=== PATIENT | male | born 1950 | race Caucasian/White ===

== ENCOUNTER 2019-06-23 22:57 | Emergency (ER) | payer MEDICARE ==
[~2019-06-23] VITALS: Ht 185.4 cm; Wt 83.9 kg
[~2019-06-23 22:57] MED LIST: DICL75ER PO; DIPH50 PO; LEVOXYL; LEVSOD100 PO; Norco 10-325 T1 EACH PO
[2019-06-23] MEDS ORDERED: GABA100 PO (23:49)
== END 2019-06-24 03:10 | disposition home or self-care (01) ==
LOC: ER 22:57
DX: R51 Headache (principal); Z88.5 Allergy status to narcotic agent; G89.29 Other chronic pain; M54.9 Dorsalgia, unspecified; Z87.891 Personal history of nicotine dependence; Z79.899 Other long term (current) drug therapy
CPT/HCPCS: 36415; 70450; 72040; 96374; 96375; 99284-25; J1100; J1200; J1885; J2765; J7030

== ENCOUNTER 2021-04-05 14:35 | Day surgery (SDC) | payer MEDICARE ==
[~2021-04-05] VITALS: Ht 187.9 cm; Wt 86.3 kg
[~2021-04-05 14:35] MED LIST changes: +GABA100 PO
== END 2021-04-05 17:40 | disposition home or self-care (01) ==
LOC: ORSCSDS 14:35
PROVIDERS: Podiatrist Foot & Ankle Surgery
PROC: 0SGQ04Z Fusion of Left Toe Phalangeal Joint with Internal Fixation Device, Open Approach (ICD-10-PCS; principal; 2021-04-05 15:45)
DX: M20.42 Other hammer toe(s) (acquired), left foot (principal); E03.9 Hypothyroidism, unspecified; Z87.891 Personal history of nicotine dependence; Z79.899 Other long term (current) drug therapy
CPT/HCPCS: A9270; C1713; J0171; J0690; J7120

== ENCOUNTER → 2022-01-25 | Outpatient (CLI) | payer MEDICARE | END | disposition home or self-care (01) | LOC: PLD 11:13 → LAB SHORT 11:13 | DX: L82.1 Other seborrheic keratosis (principal) | CPT/HCPCS: 88305 ==

== ENCOUNTER 2023-10-26 09:18 | Day surgery (SDC) | payer MEDICARE ==
[~2023-10-26] VITALS: Ht 188 cm; Wt 96.1 kg
[~2023-10-26 09:18] MED LIST changes: +AMOCLA875 PO; +BACL20 PO; +DOXE25 PO; +DULO30 PO; -LEVSOD100 PO; +MELATONIN5 M1 PO; +SYNTHROID125 MC1 PO
[2023-10-26] MEDS ORDERED: GABA600 PO (09:46)
[2023-10-26] MEDS ORDERED: TESTOSTERONE100 MG IL (09:47)
[2023-10-26 11:02] VITALS: BP 134/85
--- NOTE | 2023-10-26 11:06 | NUR ---
10/26/23 1106 Familia Harley IV REMOVED INTACT. SITE WNL.
== END 2023-10-26 11:05 | disposition home or self-care (01) ==
LOC: ORSCSDS 09:18
PROVIDERS: Ophthalmology
PROC: 08RJ3JZ Replacement of Right Lens with Synthetic Substitute, Percutaneous Approach (ICD-10-PCS; principal; 2023-10-26 10:30)
DX: H25.11 Age-related nuclear cataract, right eye (principal); F32.A Depression, unspecified; H35.30 Unspecified macular degeneration; Z79.899 Other long term (current) drug therapy
CPT/HCPCS: J2250; J3010; J3301; J7040; V2632

== ENCOUNTER 2023-11-02 13:06 | Day surgery (SDC) | payer MEDICARE ==
[~2023-11-02] VITALS: Ht 188 cm; Wt 95.0 kg
[~2023-11-02 13:06] MED LIST changes: +GABA600 PO; +TESTOSTERONE100 MG IL
--- NOTE | 2023-11-02 14:50 | NUR ---
11/02/23 1450 Esperanza Johansen PROPARACAINE: 1438 PLEDGETT: 1437
[2023-11-02 15:55] VITALS: BP 155/81
== END 2023-11-02 16:25 | disposition home or self-care (01) ==
LOC: ORSCSDS 13:06
PROVIDERS: Ophthalmology
PROC: 08RK3JZ Replacement of Left Lens with Synthetic Substitute, Percutaneous Approach (ICD-10-PCS; principal; 2023-11-02 14:30)
DX: H25.12 Age-related nuclear cataract, left eye (principal); Z96.1 Presence of intraocular lens; H35.30 Unspecified macular degeneration; Z87.891 Personal history of nicotine dependence; Z79.899 Other long term (current) drug therapy
CPT/HCPCS: J2250; J3010; J3301; J7040; V2632